=== PATIENT | male | born 1985 | race Caucasian/White ===

== ENCOUNTER 2024-09-17 20:06 | Emergency (ER) | payer OTHER ==
[2024-09-17] MEDS ORDERED: BUPIVACAINE 0.5% PF 10 ML VIAL ONE (21:39)
[2024-09-17] MEDS ORDERED: LIDOCAINE 1% 20 ML MDV ONE (21:39)
--- NOTE | 2024-09-17 22:25 | RAD REPORT ---
EXAM: XR Hand Left 3 View HISTORY: [facility] MAIN LACERATION LEFT INDEX FINGER Bed: COMPARISON: None TECHNIQUE: 3 radiographic views of the LEFT hand submitted. FINDINGS: No evidence of acute fracture or dislocation. Joint alignment is maintained. Soft tissue i rregularity and swelling along the second digit. Linear radiopaque structure along the base of the second proximal phalanx suggesting an embedded foreign body. Metallic watch limits evaluation of the wrist osseous structures.. No significant degenerative changes are present. IMPRESSION: No acute fracture or dislocation. Metallic linear structure embedded at the base of the s econd digit proximal phalanx may represent a fragment of a needle. Soft tissue abnormalities of the second digit.
--- NOTE | 2024-09-17 22:41 | EDPHYS ---
Physician Documentation [facility] Name: Mason Montero Age: 39 yrs Sex: Male : 1985 Arrival Date: 09/17/2024 Time: 20:06 Bed 13 Private MD: ED Physician Dana Banks HPI: 09/17 21:00 This 39 yrs old Male presents to ER via Ambulatory with complaints of Finger laceration.cp 21:00 The patient or guardian reports a laceration, clean. The complaints affect the left cp index finger. 21:00 Context: resulted from accident while using knife. Onset: The symptoms/episode cp began/occurred 1 hour(s) ago. Associated signs and symptoms: The patient has no apparent associated signs or symptoms. Historical: - Allergies: 20:37 sodium chloride in eyes; cm10 - PMHx: 20:37 Hypertension; cm10 - Immunization history:: Adult Immunizations up to date. - Infectious Disease History:: Denies. - Social history:: Smoking status: Patient/guardian denies using tobacco. ROS: 21:05 Skin: Positive for laceration(s), of the left index finger, cp 21:05 Constitutional: history per hpi cp 21:05 MS/extremity: Negative for paresthesias, 21:05 All other systems are negative, Exam: 21:10 Constitutional: The patient appears in no acute distress, alert, awake, non-toxic, well cp developed, well nourished, 21:10 Head/Face: Normocephalic, atraumatic. cp 21:10 Cardiovascular: Rate: normal, 21:10 Respiratory: the patient does not display signs of respiratory distress, Respirations: normal, no use of accessory muscles, no retractions, labored breathing, is not present, Breath sounds: are clear throughout, no decreased breath sounds, no stridor, no wheezing, 21:10 Musculoskeletal/extremity: Extremities: noted in the radial side middle phalanx left index finger: laceration, ROM: full active range of motion, in the left index finger, Perfusion: the extremity is normally perfused throughout, the right index finger Sensation intact. Vital Signs: 20:35 BP 131 / 84; Pulse 78; Resp 17; Temp 97.4(TE); Pulse Ox 94% on R/A; Weight 117.93 kg; cm10 Height 5 ft. 10 in. ; Pain 6/10; 21:30 BP 133 / 90; Pulse 90; Resp 17; Pulse Ox 98% on R/A; rg5 22:38 BP 125 / 71; Pulse 85; Resp 17; Pulse Ox 97% ; Pain 5/10; rg5 20:35 Body Mass Index 37.31 (117.93 kg, 177.8 cm) cm10 20:35 Pain Scale: Adult cm10 22:38 Pain Scale: Adult rg5 Laceration: 22:45 Wound Repair of 2.5cm ( 1.0in ) subcutaneous laceration to radial side middle phalanx cp left index finger. Linear shaped.. Distal neuro/vascular/tendon intact. Anesthesia: Digital block administered with 6 mls of Lido/Marcaine. Wound prep: Moderate cleansing by me, Wound irrigation by me. Skin closed with 4 4-0 Prolene using interrupted sutures and sterile technique. Dressed with Bacitracin, splint. Patient tolerated well. MDM: 20:58 Medical Screening Exam initiated cp 21:05 Differential diagnosis: open fracture, simple laceration, tendon injury. cp 22:40 Data reviewed: vital signs, nurses notes, radiologic studies, plain films, and as a cp result, I will discharge patient. 22:40 Counseling: I had a detailed discussion with the patient and/or guardian regarding the cp historical points, exam findings, and any diagnostic results supporting the discharge/admit diagnosis, radiology results, to return to the emergency department if symptoms worsen or persist or if there are any questions or concerns that arise at home. Response to treatment: the patient's symptoms have markedly improved after treatment, and as a result, I will discharge patient. 09/17 20:38 Order name: Hand Left 3 View XRAY; Complete Time: 22:40 cm10 09/17 21:03 Order name: Dressing - Wound; Complete Time: 22:36 cp 09/17 21:03 Order name: Gloves, Sterile; Complete Time: 21:44 cp 09/17 21:03 Order name: Setup Suture Tray; Complete Time: 21:44 cp 09/17 22:40 Order name: Finger Splint; Complete Time: 22:44 cp 09/17 22:40 Order name: Wound dressing; Complete Time: 22:44 cp Administered Medications: 22:15 Drug: Lidocaine Infiltration (1 %) 10 ml 5 ml Infiltration once; to bedside {Note: rg5 administered by provider.} Volume: 5 ml; Route: Infiltration; 22:15 Drug: Bupivacaine Infiltration (0.5 %) 10 ml 10 ml Infiltration once {Note: rg5 administered by provider.} Volume: 10 ml; Route: Infiltration; Disposition Summary: 09/17/24 22:41 Discharge Ordered Notes: Location: Home cp Problem: new cp Symptoms: have improved cp Condition: Stable cp Diagnosis - Laceration without foreign body of left index finger without damage to nail cp Followup: cp - With: Private Physician - When: 10 - 14 days - Reason: Staple/Suture removal Discharge Instructions: - Discharge Summary Sheet cp - Laceration Care, Adult cp Forms: - Medication Reconciliation Form cp - Antibiotic Education cp - Prescription Opioid Use cp - Patient Portal Instructions cp - Leadership Thank You Letter cp Prescriptions: - Cephalexin 500 mg Oral Capsule - take 1 capsule ORAL route every 8 hours for 10 days; 30 capsule; Refills: 0, cp Product Selection Permitted Signatures: Dispatcher [employer] EDKlaus Viera PA PA cp Martinez, Clarissa, RN RN cm10 Yunior Rodríguez, RN RN rg5
--- NOTE | 2024-09-17 22:41 | ER ---
Nurse's Notes [facility] Name: Mason Montero Age: 39 yrs Sex: Male : 1985 Arrival Date: 09/17/2024 Time: 20:06 Bed 13 Private MD: Diagnosis: Laceration without foreign body of left index finger without damage to nail Presentation: 09/17 20:35 Chief complaint: Patient states: LACERATION TO LEFT INDEX FINGER ONSET 1HR [employer]. PT CUT cm10 FINGER WITH KNIFE. LAST TETANUS 2YRS AGO. PT SENT HERE FROM [facility]. Coronavirus screen: Client denies travel out of the [place] in the last 14 days. Ebola Screen: Patient denies travel to an Ebola-affected area in the 21 days before illness onset. No symptoms or risks identified at this time. Initial Sepsis Screen: Does the patient meet any 2 criteria? No. Patient's initial sepsis screen is negative. Does the patient have a suspected source of infection? No. Patient's initial sepsis screen is negative. Risk Assessment: Do you want to hurt yourself or someone else? Patient reports no desire to harm self or others. Onset of symptoms was September 17, 2024. 20:35 Method Of Arrival: Ambulatory cm10 20:35 Acuity: MOON 4 cm10 Triage Assessment: 20:37 Injury Description: Laceration sustained to palmar aspect of middle phalanx of left cm10 index finger is clean, 0.5 to 2.5 cm long, bleeding moderately, was sustained 30-60 minutes ago. 20:38 General: Appears in no apparent distress. comfortable, Behavior is calm, cooperative. cm10 Neuro: No deficits noted. Level of Consciousness is awake, alert, obeys commands, Oriented to person, place, time, situation, Appropriate for age. Historical: - Allergies: 20:37 sodium chloride in eyes; cm10 - PMHx: 20:37 Hypertension; cm10 - Immunization history:: Adult Immunizations up to date. - Infectious Disease History:: Denies. - Social history:: Smoking status: Patient/guardian denies using tobacco. Screenin:40 [facility] ED Fall Risk Assessment (Adult) History of falling in the last 3 months, rg5 including since admission No falls in past 3 months (0 pts) Confusion or Disorientation No (0 pts) Intoxicated or Sedated No (0 pts) Impaired Gait No (0 pts) Mobility Assist Device Used No (0 pt) Altered Elimination No (0 pt) Score/Fall Risk Level 0 - 2 = Low Risk Oriented to surroundings, Maintained a safe environment, Hourly rounding (assess needs \T\ fall precautionary measures) done. Abuse screen: Denies threats or abuse. Nutritional screening: No deficits noted. Tuberculosis screening: No symptoms or risk factors identified. Assessment: 20:40 General: Appears in no apparent distress. comfortable. rg5 20:40 Pain: Complains of pain in palmar aspect of middle phalanx of left index finger. Neuro: rg5 Level of Consciousness is awake, alert, obeys commands, Oriented to time. Cardiovascular: Denies chest pain, Patient's skin is warm and dry. Respiratory: Airway is patent Trachea midline Respiratory effort is even, unlabored, Respiratory pattern is regular, symmetrical. GI: Abdomen is round non-distended. : No signs and/or symptoms were reported regarding the genitourinary system. EENT: No deficits noted. Derm: Skin is intact, Skin is dry, Skin is normal, Wound noted palmar aspect of middle phalanx of left index finger. Musculoskeletal: Circulation, motion, and sensation intact. Range of motion: intact in all extremities. 21:30 Reassessment: Patient and/or family updated on plan of care and expected duration. Pain rg5 level reassessed. Patient is alert, oriented x 3, equal unlabored respirations, skin warm/dry/pink. 22:45 Reassessment: Patient and/or family updated on plan of care and expected duration. Pain rg5 level reassessed. Patient is alert, oriented x 3, equal unlabored respirations, skin warm/dry/pink. Patient states symptoms have improved. Vital Signs: 20:35 BP 131 / 84; Pulse 78; Resp 17; Temp 97.4(TE); Pulse Ox 94% on R/A; Weight 117.93 kg; cm10 Height 5 ft. 10 in. ; Pain 6/10; 21:30 BP 133 / 90; Pulse 90; Resp 17; Pulse Ox 98% on R/A; rg5 22:38 BP 125 / 71; Pulse 85; Resp 17; Pulse Ox 97% ; Pain 5/10; rg5 20:35 Body Mass Index 37.31 (117.93 kg, 177.8 cm) cm10 20:35 Pain Scale: Adult cm10 22:38 Pain Scale: Adult rg5 ED Course: 20:07 Patient arrived in ED. mr 20:37 Triage completed. cm10 20:37 Arm band placed on right wrist. Patient placed in waiting room. cm10 20:40 Patient has correct armband on for positive identification. Door closed. Noise rg5 minimized. Verbal reassurance given. 20:40 Assist provider with laceration repair on palmar aspect of middle phalanx of left index rg5 finger that was between 2.6 to 7.5 cm using sutures. Set up tray. Performed by Klaus HAGER Dressed with 4X4s, Kerlix, Neosporin, Patient tolerated well. Patient did not have IV access during this emergency room visit. 20:57 Yunior Rodríguez, RN is Primary Nurse. rg5 20:57 Klaus Lara PA is PHCP. cp 20:58 Dana Banks MD is Attending Physician. cp 21:09 Hand Left 3 View XRAY In Process Unspecified. EDMS 23:02 Provided Education on: post er care. rg5 Administered Medications: 22:15 Drug: Lidocaine Infiltration (1 %) 10 ml 5 ml Infiltration once; to bedside {Note: rg5 administered by provider.} Volume: 5 ml; Route: Infiltration; 22:15 Drug: Bupivacaine Infiltration (0.5 %) 10 ml 10 ml Infiltration once {Note: rg5 administered by provider.} Volume: 10 ml; Route: Infiltration; Medication: 20:40 VIS not applicable for this client. rg5 Outcome: 22:41 Discharge ordered by MD. cp 23:02 Discharged to home ambulatory, rg5 23:02 Condition: stable 23:02 Discharge instructions given to patient, Instructed on discharge instructions, follow up and referral plans. Demonstrated understanding of instructions, follow-up care, medications, Prescriptions given X 1, 23:02 Patient left the ED. rg5 Signatures: Dispatcher [employer] EDKY MorelandCherry, Devin Reg Klaus Lara PA PA cp Mitra Fried RN RN cm10 Yunior Rodríguez, RN RN rg5
[2024-09-17 23:16] VITALS: TEMP 97.4
[2024-09-17 23:18] VITALS: BP 125/71; O2SAT 97
== END 2024-09-17 23:02 | disposition home or self-care (01) ==
LOC: ER 20:06
DX: S61.211A Laceration without foreign body of left index finger without damage to nail, initial encounter (principal)
CPT/HCPCS: 73130; 99284; 12001; J2003